=== PATIENT | male | born 1960 | race Caucasian/White ===

== ENCOUNTER 2019-01-13 09:47 | Emergency (ER) | payer OTHER, BC ==
[~2019-01-13] VITALS: Ht 190.5 cm; Wt 102.5 kg
[2019-01-13 09:54] VITALS: Ht 190.5 cm; Wt 102.5 kg
[2019-01-13 12:06] VITALS: BP 129/81
== END 2019-01-13 12:06 | disposition home or self-care (01) ==
LOC: ED 09:47
DX: M62.830 Muscle spasm of back (principal)
CPT/HCPCS: J1885; J2270